=== PATIENT | female | born 1985 | race African-American/Black ===

== ENCOUNTER 2016-09-16 14:17 | Emergency (ER) | payer OTHER ==
[~2016-09-16] VITALS: Ht 175.3 cm; Wt 95.5 kg
[2016-09-16] MEDS ORDERED: LIDOCAINE HCL 2% 5 ML JELLY TP ONE (15:30)
[2016-09-16] MEDS ORDERED: IBUPROFEN 800 MG TABLET PO ONE (15:45)
[2016-09-16] MEDS ORDERED: ACETAMINOPHEN 500 MG TABLET PO ONE (15:45)
[2016-09-16 16:02] VITALS: BP 116/88
[2016-09-22] MEDS ORDERED: ANTIBIOTICS PO (09:58)
== END 2016-09-16 16:40 | disposition home or self-care (01) ==
LOC: EMS 14:19
DX: L02.213 Cutaneous abscess of chest wall (principal); Z88.6 Allergy status to analgesic agent; Z88.8 Allergy status to other drugs, medicaments and biological substances
CPT/HCPCS: 10060; 99283; 99284

== ENCOUNTER 2016-10-14 16:31 | Emergency (ER) | payer OTHER ==
[~2016-10-14] VITALS: Ht 175.3 cm; Wt 90.5 kg
[~2016-10-14 16:31] MED LIST: ANTIBIOTICS PO
[2016-10-14 17:33] LABS: BASOPHILS % (AUTO) 1.3 % (0.0-2.0); EOSINOPHILS % (AUTO) 14.2 % (1.0-6.0); HEMATOCRIT 40.7 % (36-46); HEMOGLOBIN 13.4 g/dL (12.0-16.0); LYMPHOCYTES # (AUTO) 1.3 K/uL (1.0-4.8); LYMPHOCYTES % (AUTO) 21.8 % (22.0-44.0); MEAN CORPUSCULAR HEMOGLOBIN 32.1 pg (26.0-34.0); MEAN CORPUSCULAR VOLUME 98 fL (80-100); MONOCYTES # (AUTO) 0.3 K/uL (0.1-1.0); MONOCYTES % (AUTO) 4.1 % (2.0-9.0); NEUTROPHILS # (AUTO) 3.6 K/uL (1.8-7.7); NEUTROPHILS % (AUTO) 58.6 % (40.0-70.0); PLATELET COUNT (AUTO) 166 K/uL (150-450); RED BLOOD CELL COUNT(AUTO) 4.18 MIL/uL (4.00-5.20); RED CELL DISTRIBUTION WIDTH 13.9 % (11.5-14.5); WHITE BLOOD COUNT (AUTO) 6.1 K/uL (4.5-11.0)
[2016-10-14 18:04] LABS: ANION GAP 9 mmol/L (8-16); CALCIUM, TOTAL 8.9 mg/dL (8.8-10.5); CARBON DIOXIDE 26 mmol/L (22-29); CHLORIDE 102 mmol/L (98-107); CREATININE 0.92 mg/dL (0.60-1.30); GLOMERULAR FILTR. RATE CALC > 60 mL/min (>60); POTASSIUM 3.5 mmol/L (3.5-5.1); SODIUM SERUM 137 mmol/L (136-145); UREA NITROGEN, BLOOD 7 mg/dL (7-18)
[2016-10-14 18:30] LABS: ALANINE AMINOTRANSFERASE 23 U/L (12-78); ALBUMIN 3.7 g/dL (3.4-5.0); BILIRUBIN,TOTAL 0.4 mg/dL (0.1-1.0); TOTAL PROTEIN, SERUM 8.1 g/dL (6.4-8.2)
[2016-10-14 18:43] LABS: ASPARTATE AMINOTRANSFERASE 11 U/L (15-37)
[2016-10-14] MEDS ORDERED: DiphenhydrAMINE HCL 25 MG CAPSULE PO ONE (19:45)
[2016-10-14] MEDS ORDERED: ACETAMINOPHEN 500 MG TABLET PO ONE (19:45)
[2016-10-14 21:40] VITALS: BP 114/70
== END 2016-10-14 21:52 | disposition home or self-care (01) ==
LOC: EMS 16:33
DX: O20.0 Threatened abortion (principal); Z3A.01 Less than 8 weeks gestation of pregnancy; Z88.5 Allergy status to narcotic agent
CPT/HCPCS: 76801; 76817; 86901; 99285

== ENCOUNTER 2016-11-11 19:05 | Emergency (ER) | payer OTHER ==
[~2016-11-11] VITALS: Ht 175.3 cm; Wt 95.0 kg
[2016-11-11] MEDS ORDERED: PREN-147 PO (19:26)
[2016-11-11 19:45] LABS: BASOPHILS % (AUTO) 0.5 % (0.0-2.0); EOSINOPHILS % (AUTO) 11.4 % (1.0-6.0); HEMATOCRIT 39.3 % (36-46); HEMOGLOBIN 12.9 g/dL (12.0-16.0); LYMPHOCYTES # (AUTO) 1.8 K/uL (1.0-4.8); LYMPHOCYTES % (AUTO) 21.2 % (22.0-44.0); MEAN CORPUSCULAR HEMOGLOBIN 32.3 pg (26.0-34.0); MEAN CORPUSCULAR HGB CONC 32.8 G/dL (31.0-37.0); MEAN CORPUSCULAR VOLUME 98 fL (80-100); MONOCYTES # (AUTO) 0.4 K/uL (0.1-1.0); MONOCYTES % (AUTO) 5.4 % (2.0-9.0); NEUTROPHILS # (AUTO) 5.1 K/uL (1.8-7.7); NEUTROPHILS % (AUTO) 61.5 % (40.0-70.0); PLATELET COUNT (AUTO) 165 K/uL (150-450); RED BLOOD CELL COUNT(AUTO) 3.99 MIL/uL (4.00-5.20); RED CELL DISTRIBUTION WIDTH 13.4 % (11.5-14.5); WHITE BLOOD COUNT (AUTO) 8.3 K/uL (4.5-11.0)
[2016-11-11 19:52] LABS: ANION GAP 10 mmol/L (8-16); CALCIUM, TOTAL 8.8 mg/dL (8.8-10.5); CARBON DIOXIDE 27 mmol/L (22-29); CHLORIDE 103 mmol/L (98-107); CREATININE 0.85 mg/dL (0.60-1.30); GLOMERULAR FILTR. RATE CALC > 60 mL/min (>60); POTASSIUM 4.1 mmol/L (3.5-5.1); SODIUM SERUM 140 mmol/L (136-145); UREA NITROGEN, BLOOD 9 mg/dL (7-18)
[2016-11-11 20:20] LABS: ALANINE AMINOTRANSFERASE 16 U/L (12-78); ALBUMIN 3.6 g/dL (3.4-5.0); ASPARTATE AMINOTRANSFERASE 12 U/L (15-37); BILIRUBIN,TOTAL 0.2 mg/dL (0.1-1.0); TOTAL PROTEIN, SERUM 7.9 g/dL (6.4-8.2)
[2016-11-11 21:30] LABS: ADD UA MICROSCOPIC NO; APPEARANCE,URINE CLEAR (CLEAR); GLUCOSE, URINE (UA) NEGATIVE (NEGATIVE); KETONES,URINE NEGATIVE (NEGATIVE); LEUKOCYTE ESTERASE ,URINE NEGATIVE (NEGATIVE); OCCULT BLOOD,URINE NEGATIVE (NEGATIVE); PH,URINE 6.5 (5.0-8.0); PROTEIN,URINE NEGATIVE (NEGATIVE)
[2016-11-11 23:30] VITALS: BP 118/73
== END 2016-11-11 23:32 | disposition home or self-care (01) ==
LOC: EMS 19:06
DX: O26.891 Other specified pregnancy related conditions, first trimester (principal); R10.9 Unspecified abdominal pain; Z3A.09 9 weeks gestation of pregnancy; Z88.6 Allergy status to analgesic agent
CPT/HCPCS: 76801; 76817; 99285

== ENCOUNTER 2018-07-17 11:49 | Emergency (ER) | payer OTHER ==
[~2018-07-17] VITALS: Ht 175.3 cm; Wt 100.0 kg
[~2018-07-17 11:49] MED LIST changes: -ANTIBIOTICS PO; +PREN-147 PO
[2018-07-17] MEDS ORDERED: ONDANSETRON HCL 4 MG TABLET PO ONE (13:45)
[2018-07-17] MEDS ORDERED: ACETAMINOPHEN 500 MG TABLET PO ONE (13:45)
[2018-07-17 14:55] VITALS: BP 125/74
== END 2018-07-17 15:11 | disposition home or self-care (01) ==
LOC: EMS 11:55
DX: K52.9 Noninfective gastroenteritis and colitis, unspecified (principal); Z88.5 Allergy status to narcotic agent
CPT/HCPCS: 81025; 99283; Q0162

== ENCOUNTER 2019-03-12 12:59 | Emergency (ER) | payer OTHER ==
[~2019-03-12] VITALS: Ht 175.3 cm; Wt 100.0 kg
[2019-03-12] MEDS ORDERED: KETOROLAC TROMETHAMINE 10 MG TABLET PO ONE (14:00)
[2019-03-12 15:31] VITALS: BP 133/81
== END 2019-03-12 15:37 | disposition home or self-care (01) ==
LOC: EMS 13:00
DX: M77.9 Enthesopathy, unspecified (principal); Z88.5 Allergy status to narcotic agent

== ENCOUNTER 2020-03-18 08:37 | Emergency (ER) | payer OTHER ==
[~2020-03-18] VITALS: Ht 175.3 cm; Wt 81.8 kg
[2020-03-18 08:38] VITALS: BP 118/71
[2020-03-18] MEDS ORDERED: LIDOCAINE 1%/EPI 1:200,000/PF 10 ML VIAL INJ ONE (09:00)
== END 2020-03-18 09:34 | disposition home or self-care (01) ==
LOC: EDUNIT# 08:37 → EMS 08:42
DX: L02.412 Cutaneous abscess of left axilla (principal); Z88.5 Allergy status to narcotic agent
CPT/HCPCS: 10060; 99283; J3490

== ENCOUNTER 2020-03-20 10:42 | Emergency (ER) | payer OTHER ==
[~2020-03-20] VITALS: Ht 175.3 cm; Wt 81.8 kg
[2020-03-20 11:30] VITALS: BP 124/81
== END 2020-03-20 11:55 | disposition home or self-care (01) ==
LOC: EMS 10:47
DX: L02.412 Cutaneous abscess of left axilla (principal)
CPT/HCPCS: Z7502

== ENCOUNTER 2024-09-13 11:54 | Emergency (ER) | payer SELFPAY ==
[~2024-09-13] VITALS: Ht 175.3 cm; Wt 95.5 kg
[2024-09-13 12:03] VITALS: BP 123/78; PULSE 96; RESP 18; TEMP 98.3; O2SAT 98
[2024-09-13 12:38] LABS: COVID AG,FIA SOURCE NASAL SWAB
[2024-09-13 13:13] LABS: INFLUENZA TYPE A NEGATIVE FOR TYPE A (NEGATIVE); INFLUENZA TYPE B NEGATIVE FOR TYPE B (NEGATIVE); SARS-COV2 (COVID) ANTIGEN,FIA Negative (Negative)
[2024-09-13] MEDS ORDERED: BENZ-227 PO (15:09)
== END 2024-09-13 15:16 | disposition home or self-care (01) ==
LOC: EMS 11:54
DX: J06.9 Acute upper respiratory infection, unspecified (principal); B97.89 Other viral agents as the cause of diseases classified elsewhere; Z88.5 Allergy status to narcotic agent; Z98.890 Other specified postprocedural states; Z20.822 Contact with and (suspected) exposure to COVID-19
CPT/HCPCS: 87804; 99283

== ENCOUNTER 2024-09-22 09:36 | Emergency (ER) | payer MEDICAID ==
[~2024-09-22] VITALS: Ht 170.2 cm; Wt 97.7 kg
[~2024-09-22 09:36] MED LIST changes: +BENZ-227 PO; -PREN-147 PO
[2024-09-22 09:41] VITALS: BP 115/61; PULSE 76; RESP 18; TEMP 98.8; O2SAT 99
== END 2024-09-22 14:01 | disposition home or self-care (01) ==
LOC: EMS 09:38
DX: J06.9 Acute upper respiratory infection, unspecified (principal); Z88.5 Allergy status to narcotic agent
CPT/HCPCS: 99281; Z7502